=== PATIENT | male | born 1935 | race Native Hawaiian/Other Pacific Islander ===

== ENCOUNTER 2016-08-22 09:58 | Emergency (ER) | payer MEDICARE ==
[~2016-08-22] VITALS: Ht 167.6 cm; Wt 80.0 kg
[2016-08-22 10:00] VITALS: BP 122/60; PULSE 84; RESP 15; TEMP 98.1; O2SAT 99
[2016-08-22] MEDS ORDERED: GLYB1.253 PO (10:29)
[2016-08-22] MEDS ORDERED: ROSU10 PO (10:29)
[2016-08-22] MEDS ORDERED: PLAV75TA29 PO (10:29)
[2016-08-22] MEDS ORDERED: METF500T PO (10:29)
[2016-08-22] MEDS ORDERED: RAPA8CAP PO (10:29)
[2016-08-22] MEDS ORDERED: IRBE150T15 PO (10:29)
--- NOTE | 2016-08-22 10:29 | PD ---
HPI Chief Complaint: Pain: Acute or Chronic Time Seen by Provider: 10:29 Travel History International Travel<30 days: No Contact w/Intl Traveler<30days: No Traveled to known affect area: No History of Present Illness HPI 80-year-old male came to the emergency room with history of left knee joint swelling and pain. Patient says this has been going on for past 2 days. He has history of pseudogout and had something similar about 10 years ago. This is getting worse especially the pain and discomfort in walking. He spoke with an orthopedist Dr. Mendoza who told him to go to the emergency room and he will come in and tap his knee joint and inject hydrocortisone. Patient asked me if I had heard from Dr. Mendoza. I let him know I had not but I will put a call out to him and discussed this with him. No history of fever or chills. No history of trauma directly on the knee. His vital signs were relatively stable. PFSH Past Medical History Narrative Medical List of his past medical, surgical, social and family history was reviewed from the nursing note. Hx Anticoagulant Therapy: Yes (PLAVIX) Cardiovascular Problems: Yes (3 STENT) Social History Tobacco Use: No Allergies-Medications (Allergen,Severity, Reaction): Coded Allergies: Altace (Verified Allergy, Unknown, RASHES , 08/22/16) Motrin (Verified Allergy, Unknown, RASHES, 08/22/16) Tagamet (Verified Allergy, Unknown, RASHES, 08/22/16) Comments List of his allergies reviewed from the nursing note. Reported Meds & Prescriptions Reported Meds & Active Scripts Active Reported Zantac (Ranitidine HCl) 150 Mg Tab 150 Mg PO DAILY Crestor (Rosuvastatin Calcium) 10 Mg Tab 10 Mg PO DAILY Rapaflo (Silodosin) 8 Mg Cap 8 Mg PO DAILY Irbesartan 150 Mg Tab 150 Mg PO DAILY Plavix (Clopidogrel Bisulfate) 75 Mg Tab 75 Mg PO DAILY Glyburide 1.25 Mg Tab 1.25 Mg PO DAILY Take with meals at the same time each day Metformin (Metformin HCl) 500 Mg Tab 500 Mg PO BIDPC With meals Narrative Medication List of his home medications reviewed from the nursing note. Review of Systems Except as stated in HPI: all other systems reviewed are Neg Physical Exam Narrative GENERAL: Awake, alert, mild distress SKIN: Focused skin assessment warm/dry. HEAD: Atraumatic. Normocephalic. EYES: Pupils equal and round. No scleral icterus. No injection or drainage. ENT: No nasal bleeding or discharge. Mucous membranes pink and moist. NECK: Trachea midline. No JVD. CARDIOVASCULAR: Regular rate and rhythm. No murmur appreciated. RESPIRATORY: No accessory muscle use. Clear to auscultation. Breath sounds equal bilaterally. GASTROINTESTINAL: Abdomen soft, non-tender, nondistended. Hepatic and splenic margins not palpable. MUSCULOSKELETAL: No obvious deformities. No clubbing. No cyanosis. No edema. Left knee joint is swollen, effusion can be palpated with ballotable patella. Decreased range of motion. No erythema of the skin. Warm to touch. NEUROLOGICAL: Awake and alert. No obvious cranial nerve deficits. Motor grossly within normal limits. Normal speech. PSYCHIATRIC: Appropriate mood and affect; insight and judgment normal. Data Data Last Documented VS Vital Signs Date Time Temp Pulse Resp B/P Pulse Ox O2 Delivery O2 Flow Rate FiO2 08/22/16 12:48 100 08/22/16 10:30 89 16 122/60 08/22/16 10:00 98.1 Orders Lidocai-Epi 1%-1:100,000 Inj (Xylocaine- (08/22/16 11:38) Dexamethasone Inj (Decadron Inj) (08/22/16 11:45) Fluid Culture And Gram Stain (08/22/16 12:11) Synovial Fluid Crystals (08/22/16 12:11) Labs Laboratory Tests Test 08/22/16 12:30 Synovial Fluid Crystals MDM Medical Decision Making Medical Screen Exam Complete: Yes Emergency Medical Condition: Yes Medical Record Reviewed: Yes Differential Diagnosis Arthritis with effusion, hemarthrosis, pseudogout Narrative Course 12:[address] Mendoza came in to see the patient and did a knee joint effusion. Injected hydrocortisone as well. He asked the fluid to be sent for culture and crystals which has been ordered. Please refer to his notes. Patient will be discharged home. Procedures EKG Prior to Arrival: No Physician Communication Physician Communication Dr. Mendoza Diagnosis Primary Impression: Effusion of knee joint, left Referrals: Primary Care Physician 1 week Additional Instructions: Please return to the ER if the condition worsens or any other new concerns. Otherwise follow-up with Dr. Mendoza Disposition: 01 DISCHARGE HOME Condition: Stable Tamiko Rosales MD Aug 22, 2016 10:29
[2016-08-22 10:30] VITALS: BP 122/60; PULSE 89; RESP 16; O2SAT 99
[2016-08-22] MEDS ORDERED: ZANT150T2 PO (10:33)
[2016-08-22] MEDS ORDERED: LIDOCAINE 1%/EPINEPHrine 1:100,000 SOLN 20 ML VIAL ONE (11:38)
[2016-08-22] MEDS ORDERED: DEXAMETHASONE SOD PHOS 4 MG/ML VIAL OTHER ONE (11:45)
--- NOTE | 2016-08-22 12:54 | MB ---
cc: TONE PAYNE MD DATE OF CONSULTATION: 08/22/2016 ER PHYSICIAN: Dr. Rosales. HISTORY The patient is an 80-year-old white male who presented to the emergency room with a swollen left knee. He is a patient of Dr. Yrn Bustos and is scheduled to see Dr. Bustos on 08/24/2016 at 10:30 in the morning. The patient has a history of chondrocalcinosis and osteoarthritis with recurrent episodes of swelling in his left knee. He reports that he fell several days ago and has developed left knee pain and swelling, and he came to the emergency room for further evaluation after a telephone call to the undersigned. PAST MEDICAL HISTORY: Significant for: History of cardiac disease. MEDICATIONS: He is currently on Plavix. ALLERGIES: ALTACE MOTRIN TAGAMET PHYSICAL EXAMINATION: The patient has had a right total knee arthroplasty performed previously. His left knee motion is minus 10 to approximately 80 degrees. There is a 2+ knee effusion noted. There is pain at the extremes of motion. There is slight warmth of the knee, no erythema. His knee stability appears satisfactory. X-RAYS: The patient declined x-rays. IMPRESSION: Left knee effusion probable chondrocalcinosis and recent knee contusion. PLAN: I discussed the patient's problem in detail with him today. I have discussed treatment alternatives including aspiration, and aspiration and injection. The patient reports he was planning to see Dr. Bustos on 08/24 and have aspiration and injection of this knee. Under aseptic conditions, his knee is aspirated and approximately 50 cc of slightly cloudy joint fluid was obtained. A culture will be sent on this fluid. The patient's knee was injected with 1 cc of dexamethasone 4 milligrams per cc and 2 cc of 1% Xylocaine with epinephrine. The patient will plan to follow up with Dr. Bustos next week. Tone Payne MD ELIER/TONY /12:09 PM /12:46 PM
== END 2016-08-22 12:53 | disposition home or self-care (01) ==
LOC: NEPA 09:58
DX: M25.462 Effusion, left knee (principal); Z79.01 Long term (current) use of anticoagulants; Z86.79 Personal history of other diseases of the circulatory system
CPT/HCPCS: 20610; 87070; 87205; 99284; J1100